=== PATIENT | male | born 1935 | race Caucasian/White ===

== ENCOUNTER 2017-08-23 16:35 | Inpatient (IN) | payer OTHER ==
[~2017-08-23] VITALS: Ht 175.3 cm; Wt 63.0 kg
[2017-08-23] VITALS (7 sets, daily range): BP systolic 78–143; BP diastolic 40–78
[2017-08-23] MEDS ORDERED: TERAZOSIN HCL10 MG PO (16:54)
[2017-08-23] MEDS ORDERED: PHENAZOPYRIDIN200 M2 PO (16:54)
[2017-08-23 17:16] LABS: HEMOGLOBIN 8.5 gm/dL (14.0-18.0); MCH 28.7 pg (26.0-34.0); MCHC 33.9 g/dL (28.0-37.0); MCV 84.6 fL (80.0-100.0); MPV 8.4 fl. (7.2-11.1); NUCLEATED RBCS 0 /100WBC; PLATELET COUNT* 106 thou/uL (150-400); RBC 2.95 mil/uL (4.50-6.00); RDW-CV 14.1 % (10.5-14.5); WBC 11.1 thou/uL (4.0-11.0)
[2017-08-23 17:25] LABS: ANION GAP 9 mmol/L (7-16); BUN 38 mg/dL (7-18); CALCIUM 8.7 mg/dL (8.5-10.1); CHLORIDE 104 mmol/L (98-107); CO2 23 mmol/L (21-32); CREATININE 2.3 mg/dL (0.6-1.3); GLUCOSE 112 mg/dL (70-99); POTASSIUM 4.2 mmol/L (3.5-5.1); SODIUM 136 mmol/L (136-145)
[2017-08-23 17:26] LABS: APTT 30.5 Seconds (25.0-31.3); INR 1.3; PROTIME 12.6 Seconds (9.20-11.50)
--- NOTE | 2017-08-23 17:29 | NUR ---
CT COMPLEATED PT RETURNED TO ED
[2017-08-23 17:32] LABS: ALBUMIN 2.4 g/dL (3.4-5.0); ALKALINE PHOSPHATASE 48 U/L (46-116); SGOT 15 U/L (15-37); SGPT 18 U/L (30-65); TOTAL BILIRUBIN 0.5 mg/dL (<0.1-1.0); TOTAL PROTEIN 5.1 g/dL (6.4-8.2); TROPONIN-I LEVEL <0.06 ng/mL (<0.06)
[2017-08-23 19:01] LABS: ABSOLUTE LYMPHOCYTES 0.1 thou/uL (0.8-5.3); ABSOLUTE MONOCYTES 0.1 thou/uL (0.0-1.2); ABSOLUTE NEUTROPHILS 10.9 thou/uL (1.6-8.1)
[2017-08-23 19:02] LABS: HYPOCHROMASIA Occasional; PLATELET ESTIMATE DECREASED
--- NOTE | 2017-08-23 19:19 | NUR ---
CENTRAL LINE PLACED BY IN R GROIN. STERILE FIELD MAINTAINED. REPORT TO DEBBIE.
[2017-08-23 21:24] LABS: URINE BILIRUBIN NEGATIVE (Negative); URINE BLOOD 3+ (Negative); URINE COLOR BROWN; URINE GLUCOSE-RANDOM NEGATIVE (Negative); URINE KETONES NEGATIVE (Negative); URINE PROTEIN 2+ (Negative); URINE UROBILINOGEN 0.2 E.U./dl (0.2-1.0)
[2017-08-23 21:25] LABS: URINE LEUKOCYTES-REFLEX 3+ (Negative); URINE NITRITE-REFLEX POSITIVE (Negative)
[2017-08-23 21:26] LABS: URINE CLARITY TURBID
[2017-08-23 21:30] LABS: AMORPHOUS PHOSPHATES Moderate /LPF (None Seen); BACTERIA-REFLEX >30 Many /HPF (None Seen); CASTS None Seen /LPF (None Seen); MUCUS 4-6 Moderate strn/LPF (None Seen); RENAL EPITHELIAL CELLS 0-3 Few /LPF (None Seen); SQUAMOUS 0-3 Few /LPF (0-3); URINE RBC >20 Many /HPF (0-2); URINE WBC-REFLEX >25 Many /HPF (0-5); WBC CLUMPS Few (None Seen)
[2017-08-23 21:38] LABS: INFLUENZA A ANTIGEN None Detected (None Detect); INFLUENZA B ANTIGEN None Detected (None Detect)
[2017-08-24] VITALS (31 sets, daily range): BP systolic 75–130; BP diastolic 39–76
[2017-08-24 03:41] LABS: HEMATOCRIT 25.2 % (42.0-52.0); HEMOGLOBIN 8.4 gm/dL (14.0-18.0); MCH 28.1 pg (26.0-34.0); MCHC 33.2 g/dL (28.0-37.0); MCV 84.5 fL (80.0-100.0); MPV 8.6 fl. (7.2-11.1); RBC 2.98 mil/uL (4.50-6.00); RDW-CV 14.2 % (10.5-14.5)
[2017-08-24 04:04] LABS: CALCIUM 8.8 mg/dL (8.5-10.1); CREATININE 2.2 mg/dL (0.6-1.3); MAGNESIUM 1.4 mg/dL (1.8-2.4); POTASSIUM 3.8 mmol/L (3.5-5.1); TROPONIN-I LEVEL 0.32 ng/mL (<0.06)
--- NOTE | 2017-08-24 06:15 | NUR ---
PT ADMITTED TO ICU AT 2015 FOR SEPSIS. PT HAD RIGHT GROIN TRIPLE LUMEN CATHETER PLACED IN RIGHT GROIN IN ED. IV FLUIDS INFUSING, PT RECIEVED 2 LITER SALINE IN ED. MARTEL CATHETER PLACED PER SEPSIS PROTOCOL, UA SENT. TEMP 103.[address] KITCHEN. RECIEVED ORDERS FOR PRN TYLENOL, BLOOD CULTURES AND CONSULT FOR INFECTIOUS DISEASE. PT'S TMAX 104.1. CURRENT TEMP 98.1.
--- NOTE | 2017-08-24 12:20 | EKG ---
[place] [address] ELECTROCARDIOGRAM REPORT Name: DASHURI Anny Room: [address] ADM IN .R.#: [id number] Admission: 08/23/17 Attend Phys: Louie Aguilar, Discharge: Date of : 31 Report #: [id number] THIS REPORT FOR: //name// [facility] ED Test Date: 2017-08-23 Test Time: 16:39:41 Pat Name: URI BOWLING Department: Room: [facility] Gender: M Angio Technologist: MS : 1935 Requested By: Joe Coronel Order Number: [id number] MD: Jimy Garcia Measurements Intervals [place] Rate: 79 P: 57 DC: 152 QRS: 28 QRSD: 97 T: 48 QT: 364 QTc: 418 Interpretive Statements Sinus rhythm Borderline low voltage, extremity leads No previous ECG available for comparison Electronically Signed On 08-24-2017 12:20:47 FIELD TALENT QUALIFICATION SPECIALIST by Jimy Garcia [email or web address] <ELECTRONICALLY SIGNED> By: Jimy Garcia MD, [facility] 08/24/17 1220 1639 1639 Jimy Garcia MD, FACC /EPI
--- NOTE | 2017-08-24 18:47 | NUR ---
PT WENT IN TO AFIB WITH RVR AT APPROXIMATELY 1720. CONSULT FOR CARDIOLOGY CALLED. PT STILL REQUIRING 4 MCG/MIN LEVOPHED. 1 DOSE OF DIGOXIN GIVEN, PLEASE SEE EMAR. PT LEFT FOR SURGERY AT APPROXIMATELY [address] BOND. ASSESSMENT CHARTED. NO COMPLAINTS OF PAIN. UP TO COMMODE X3 TODAY. CATHETER CONTINUES TO DRAIN BLOOD TINGED URINE WITH CLOTS. CATHETER HAS BEEN IRRIGATED EVERY HOUR SINCE UROLOGY HAS BEEN IN TO SEE HER. VSS THROUGHOUT THE DAY ON LEVOPHED PER TITRATION.
--- NOTE | 2017-08-24 19:40 | NUR ---
PT BACK FROM OR AT 1920 AFTER CYSTODCOPY AND STENT PLACEMENT TO URETER. T SOMULANT, O2 SAT 98% ON ROOM AIR. PT CONTINUED ON IV FLUIDS AND LEVOHED AT 4 MCG'S. PT IN SINUS RHYTHM, BLOOD RESSURE 128/58.
--- NOTE | 2017-08-24 22:54 | NUR ---
PT'S HEART RATE IN 140,S. MONITORED RYHTYM AFIB. STARTED CARDIZEM DRIP AT 5 MG/HR.
[2017-08-25] VITALS (26 sets, daily range): BP systolic 90–139; BP diastolic 41–65
[2017-08-25 05:02] LABS: HEMATOCRIT 26.6 % (42.0-52.0); HEMOGLOBIN 8.9 gm/dL (14.0-18.0); MCH 28.1 pg (26.0-34.0); MCHC 33.3 g/dL (28.0-37.0); MCV 84.4 fL (80.0-100.0); RBC 3.15 mil/uL (4.50-6.00); RDW-CV 14.1 % (10.5-14.5); WBC 17.5 thou/uL (4.0-11.0)
[2017-08-25 05:31] LABS: ALBUMIN 1.9 g/dL (3.4-5.0); ALKALINE PHOSPHATASE 41 U/L (46-116); ANION GAP 8 mmol/L (7-16); BUN 31 mg/dL (7-18); CALCIUM 9.1 mg/dL (8.5-10.1); CHLORIDE 114 mmol/L (98-107); CHOLESTEROL 102 mg/dL (<200); CO2 22 mmol/L (21-32); CREATININE 1.6 mg/dL (0.6-1.3); GLUCOSE 110 mg/dL (70-99); MAGNESIUM 1.9 mg/dL (1.8-2.4); POTASSIUM 3.8 mmol/L (3.5-5.1); SGOT 28 U/L (15-37); SGPT 26 U/L (30-65); SODIUM 144 mmol/L (136-145); TOTAL BILIRUBIN 0.4 mg/dL (<0.1-1.0); TOTAL PROTEIN 4.8 g/dL (6.4-8.2); TRIGLYCERIDE 49 mg/dL (<150); VLDL 10 mg/dL (<40)
[2017-08-25 06:07] LABS: TROPONIN-I LEVEL 0.68 ng/mL (<0.06)
[2017-08-25 06:17] LABS: HDL CHOLESTEROL 30 mg/dL (>40); LDL CHOLESTEROL 63 mg/dL (<100); TC:HDL 3.4 Ratio (Not establshd)
[2017-08-25 06:24] LABS: SERUM ASSESSMENT CLEAR
--- NOTE | 2017-08-25 08:07 | CON ---
[address] [address] CONSULTATION Name: URI BOWLING Room: [address] IN .R.#: [id number] Admission: 08/23/17 Attend Phys: Louie Aguilar, Discharge: Date of : 33 Report #: [id number] THIS REPORT FOR: //name// CC: Luis Alfredo Aguilar DATE OF SERVICE: 08/24/2017 INFECTIOUS DISEASE CONSULTATION ATTENDING PHYSICIAN: Dr. Aguilar. REASON FOR CONSULTATION: Septic shock, pyelonephritis. HISTORY OF PRESENT ILLNESS: Chart reviewed, the patient examined. This is an 82-year-old male who had progressive weakness over the course of a few days, had multiple falls and was found to be confused. Evaluation suggested possible infectious etiology, recorded temperature elevation as high as 104.4. Urinalysis did show marked pyuria. Urine and blood cultures are pending. It is notable he has had a recent diagnosis of prostate cancer and has been apparently started on chemotherapy. He describes having something local instillation into his perineal area. In addition, he has had some nausea and poor appetite. No cough. He was empirically started on meropenem dosed with vancomycin. ALLERGIES: None known. MEDICATIONS: As described above, on Zosyn as well, p.r.n. analgesics and antiemetics. PAST MEDICAL HISTORY: History of bladder cancer, renal lithiasis and previous lithotripsies. SOCIAL HISTORY: Nonsmoker, no ethanol. FAMILY HISTORY: Noncontributory. REVIEW OF SYSTEMS: As above. PHYSICAL EXAMINATION: GENERAL: He appears chronically ill, undernourished. He is pleasant, although he is mildly encephalopathic. VITAL SIGNS: Temperature 97.3 and T-max of 104.4, pulse 75, respirations 14 and blood pressure 110/53. SKIN: Warm, dry. No rashes. HEENT: Unremarkable. NECK: [place] [address] CONSULTATION Name: URI BOWLING Room: [address]#: [id number] Admission: 08/23/17 Attend Phys: Louie Aguilar, Discharge: Date of : 33 Report #: [id number] LUNGS: Diminished. He has a few crackles at the bases. HEART: Regular. I do not appreciate a murmur. ABDOMEN: Soft. There are no peritoneal signs. Really not tender. GENITOURINARY: Deferred. RECTAL: Deferred. LABORATORY DATA: Blood cultures sterile thus far. Lactic acid initially 2.9, repeat was 1.6. Electrolytes: Sodium 140, potassium 3.8, chloride 109, bicarbonate is 22, anion gap of 9, BUN and creatinine 34 and 2.2 and estimated GFR of 29. CBC: White count of 12.0, H and H 8.4 and 25.2 and platelets of 93,000. Urinalysis with greater than 25 white cells and greater than 30 bacteria. Influenza antigen was negative. ASSESSMENT AND PLAN: Septic shock with complication of pyelonephritis. I think we can treat with monotherapy. We will back off on antibiotics. Await results. There is no evidence of obstructive uropathy at this point, but noted he had history of renal lithiasis. May need to do imaging if he does not respond fairly quickly. It is not clear whether he has significant immune suppression at this point. <ELECTRONICALLY SIGNED> By: Ceferino Swanson MD 08/25/17 0807 1115 [id number] Swanson MD /nt
--- NOTE | 2017-08-25 10:57 | NUR ---
Nutrition: Pt admitted with sepsis 2/2 UTI. +BM 08/24. H/o bladder cancer. RX: digoxin. Labs: BG 110, alb 1.9, prealb 2.8, WBC 17.5. Wt: 139#. Regular diet. Severely depleted visceral protein stores. Will follow pt's po intake and labs. Hopeful for good po intake and increase in proteins. Will follow per protocol. Mild risk at this time.
--- NOTE | 2017-08-25 10:59 | EKG ---
[place] [address] ELECTROCARDIOGRAM REPORT Name: URI BOWLING Room: [address] ADM IN .R.#: [id number] Admission: 08/23/17 Attend Phys: Louie Aguilar, Discharge: Date of : 33 Report #: [id number] THIS REPORT FOR: //name// [facility] Test Date: 2017-08-24 Test Time: 17:35:41 Pat Name: URI BOWLING Department: Room: [address] Gender: M Fiber Optic Assembly Worker: UNKNOWN : 1935 Requested By: Louie Aguilar Order Number: [id number] Lety MD: Jimy Garcia Measurements Intervals [place] Rate: 124 P: ID: QRS: -20 QRSD: 67 T: 73 QT: 389 QTc: 559 Interpretive Statements Atrial fibrillation Inferior infarct, old Prolonged QT interval Compared to ECG 08/23/2017 16:39:41 Prolonged QT interval now present Sinus rhythm no longer present Electronically Signed On 08-25-2017 10:59:34 FALSEWORK BUILDER by Jimy Garcia [email or web address] <ELECTRONICALLY SIGNED> By: Jimy Garcia MD, [facility] 08/25/17 1059 1735 173 Jimy Garcia MD, [facility] /EPI
--- NOTE | 2017-08-25 11:08 | EKG ---
[place] [address] ELECTROCARDIOGRAM REPORT Name: DASHURI Anny Room: [address] ADM IN M.R.#: [id number] Admission: 08/23/17 Attend Phys: Louie Aguilar, Discharge: Date of : 33 Report #: [id number] THIS REPORT FOR: //name// [facility] Test Date: 2017-08-25 Test Time: 08:45:48 Pat Name: URI BOWLING Department: Room: [address] Gender: M Manager Route: 27 : 1935 Requested By: Jimy Garcia Order Number: [id number] Lety MD: Jimy Garcia Measurements Intervals [place] Rate: 93 P: -64 [place]: 154 QRS: -14 QRSD: 72 T: 220 QT: 412 QTc: 513 Interpretive Statements Sinus or ectopic atrial rhythm Probable inferior infarct, old Lateral leads are also involved Prolonged QT interval Electronically Signed On 08-25-2017 11:08:01 RECEIVER DISPATCHER by Jimy Garcia [email or web address] <ELECTRONICALLY SIGNED> By: Jimy Garcia MD, [facility] 08/25/17 1108 0845 0845 Jimy Garcia MD, FACC /EPI
--- NOTE | 2017-08-25 16:21 | 2DMMODE ---
[place] [address] 2 D/M-MODE ECHOCARDIOGRAM Name: URI BOWLING Room: [address] ADM IN [facility]#: [id number] Admission: 08/23/17 Attend Phys: Louie De Los Santos Discharge: Date of : 33 Date of Service: 08/25/17 1620 Report #: [id number] THIS REPORT FOR: //name// APPROVED REPORT Study performed: 08/25/2017 11:27:34 EXAM: Comprehensive 2D, Doppler, and color-flow Echocardiogram Patient Location: In-Patient Room #: 004 Status: routine BSA: 1.77 HR: 69 bpm BP: 126/51 mmHg Rhythm: NSR Other Information Study Quality: Good Indications Hypotension Acute WV Sepsis 2D Dimensions LVEF(%): 74.07 (>50%) IVSd: 12.04 (7-11mm) LVOT Diam: 22.25 (18-24mm) LVDd: 39.66 mm PWd: 12.77 (7-11mm) Ascending Ao: 37.59 (22-36mm) LVDs: 22.83 (25-40mm) Aortic Root: 37.54 mm Krueger's LVEF: 74.07 % Volumes Left Atrial Volume (Systole) LA ESV Index: 26.90 mL/m2 Aortic Valve AoV Peak Austin.: 1.90 m/s AO Peak Gr.: 14.45 mmHg AO Mean Gr.: 8.41 mmHg AO V2 VTI: 36.52 cm Mitral Valve E/A Ratio: 0.82 [place] [address] 2 D/M-MODE ECHOCARDIOGRAM Name: DASHURI Anny Room: [address] IN [facility]#: [id number] Admission: 08/23/17 Attend Phys: Louie De Los Santos Discharge: Date of : 33 Date of Service: 08/25/17 1620 Report #: [id number] MV Decel. Time: 221.70 ms MV E Max Austin.: 0.89 m/s MV PHT: 64.29 ms MVA (PHT): 3.42 cm2 TDI E/Lateral E': 12.71 E/Medial E': 5.93 Medial E' Austin.: 0.15 m/s Lateral E' Austin.: 0.07 m/s Pulmonary Valve PV Peak Austin.: 1.38 m/s PV Peak Gr.: 7.58 mmHg Tricuspid Valve TR Peak Gr.: 32.16 mmHg RVSP: 37.00 mmHg Left Ventricle The left ventricle is normal size. There is normal LV segmental wall motion. Mild concentric left ventricular hypertrophy. Left ventricular systolic function is normal. The left ventricular ejection fraction is within the normal range. LVEF is 65-70%. The left ventricular diastolic function is normal. Right Ventricle The right ventricle is normal size. The right ventricular systolic function is normal. Atria The left atrium size is normal. The right atrium size is normal. Aortic Valve The aortic valve is normal in structure. No aortic regurgitation is present. There is no aortic valvular stenosis. Mitral Valve The mitral valve is normal in structure. Trace mitral regurgitation.. No evidence of mitral valve stenosis. Tricuspid Valve The tricuspid valve is normal in structure. Trace tricuspid regurgitation. The RVSP is 35-40 mmHg. Pulmonic Valve The pulmonary valve is normal in structure. There is no pulmonic [place] [address] 2 D/M-MODE ECHOCARDIOGRAM Name: URI BOWLING Room: [address] IN .R.#: [id number] Admission: 08/23/17 Attend Phys: Louie De Los Santos Discharge: Date of : 33 Date of Service: 08/25/171619 Report #: [id number] Great Vessels The aortic root is normal in size. IVC is normal in size and collapses with >50% inspiration Pericardium There is no pericardial effusion. <Conclusion> LVEF is 65-70%. Mild concentric left ventricular hypertrophy. <ELECTRONICALLY SIGNED> By: Jimy Garcia MD, FACC 08/25/171619 19 19 Jimy Garcia MD, FACC /INF
--- NOTE | 2017-08-25 19:17 | NUR ---
PT RESTING QUIETLY IN BED. MARTEL CATHETER PATENT, DRAINING DARK RED URINE. PT DENIES PAIN OR DISCOMFORT.
[2017-08-26] VITALS (7 sets, daily range): BP systolic 107–122; BP diastolic 48–57
[2017-08-26 04:52] LABS: ABSOLUTE MONOCYTES 0.7 thou/uL (0.0-1.2); ABSOLUTE NEUTROPHILS 8.7 thou/uL (1.6-8.1); BASOPHILS 0.1 %; EOSINOPHILS 0.2 %; HEMATOCRIT 24.9 % (42.0-52.0); HEMOGLOBIN 8.4 gm/dL (14.0-18.0); LYMPHOCYTES 9.2 %; MCH 28.5 pg (26.0-34.0); MCHC 33.7 g/dL (28.0-37.0); MCV 84.5 fL (80.0-100.0); MONOCYTES 6.8 %; MPV 9.3 fl. (7.2-11.1); NUCLEATED RBCS 0 /100WBC; PLATELET COUNT* 103 thou/uL (150-400); POLYS 83.7 %; RBC 2.95 mil/uL (4.50-6.00); RDW-CV 14.4 % (10.5-14.5); WBC 10.4 thou/uL (4.0-11.0)
[2017-08-26 05:15] LABS: ALBUMIN 1.8 g/dL (3.4-5.0); CALCIUM 9.2 mg/dL (8.5-10.1); CREATININE 1.4 mg/dL (0.6-1.3); TOTAL BILIRUBIN 0.3 mg/dL (<0.1-1.0); TOTAL PROTEIN 4.3 g/dL (6.4-8.2)
[2017-08-26 05:33] LABS: % SATURATION 67 % (20-39); IRON 74 ug/dL (50-175)
--- NOTE | 2017-08-26 10:12 | NUR ---
PATIENT WENT TO ROOM 316 BY WHEELCHAIR WITH NURSING STAFF. ALL BELONGINGS SENT WITH PATIENT . NO COMPLAINTS OF PAIN. ALL QUESTIONS ANSWERED. REPORT GIVEN TO COLETTE FRANCO. ALL QUESTIONS ANSWERED TO HIM
--- NOTE | 2017-08-26 17:17 | CON ---
[address] [address] CONSULTATION Name: URI BOWLING Room: [address] IN .R.#: [id number] Admission: 08/23/17 Attend Phys: Louie Aguilar, Discharge: Date of : 33 Report #: [id number] THIS REPORT FOR: //name// CC: KAREN Aguilar DATE OF SERVICE: 08/24/2017 HISTORY OF PRESENT ILLNESS: The patient is an 82-year-old white male who I was asked to see in the hospital today after he was noted to have an abnormal troponin. The history is obtained from the chart as well as the patient. No family is available. He apparently has a history of prostate cancer and has been receiving chemotherapy. He has had hematuria. Recently, he has felt weak and has a problem with balance. He apparently tripped and fell several times at home. Yesterday, the patient felt weak and fell. He had some nausea and lightheadedness. He was brought to the hospital and admitted for further evaluation and treatment. His troponin was noted to be abnormal and I was asked to see him for further evaluation and treatment. He denies history of myocardial infarction or chest pain. He has had no previous cardiac evaluation. He denies recent shortness of breath, palpitations. When he fell, he denied any seizure activity. He did not lose consciousness. He has had no vomiting or diarrhea. PAST MEDICAL HISTORY: Otherwise significant for cataract extraction. MEDICATIONS: His only home medication includes Hytrin. ALLERGIES: He had no known drug allergies. FAMILY HISTORY: His father had heart disease. 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 No smoking or alcohol abuse. REVIEW OF SYSTEMS: He has had no history of stroke, asthma, peptic ulcer disease, liver disease. He has had a kidney stone. No psychiatric illness. No chronic skin condition. PHYSICAL EXAMINATION: GENERAL: Revealed an elderly, frail appearing white male, lying in bed, appeared in no distress. VITAL SIGNS: He had a blood pressure on admission yesterday of only 80, pulse is 80. He is afebrile. HEENT: He is anicteric. Conjunctivae pink. Mucous membranes moist. NECK: Veins do not appear distended. [place] [address] CONSULTATION Name: URI BOWLING Room: [address]#: [id number] Admission: 08/23/17 Attend Phys: Louie Aguilar, Discharge: Date of : 33 Report #: [id number] CHEST: Clear to auscultation. HEART: Regular rate and rhythm. ABDOMEN: Soft, nontender. EXTREMITIES: Had no pitting edema. Posterior tibial pulse 2+ bilaterally. SKIN: Cool and dry. NEUROLOGIC: Nonfocal. LYMPH: No adenopathy. MUSCULOSKELETAL: No joint effusion. RADIOLOGICAL DATA: His ECG on admission showed a sinus rhythm with no ST or T-wave change. Workup in the Emergency Room yesterday included CT scan of the head without contrast that showed chronic changes, nothing acute. His chest x-ray showed normal heart size and clear lung cardoza. LABORATORY DATA: Sodium 140, BUN 34, creatinine 2.2, glucose 100. His albumin is 2.4. Troponin 0.06, this morning is 0.32. White blood cell count 12.0, hemoglobin 8.4, platelet count 93,000. IMPRESSION AND RECOMMENDATIONS: 1. Recurrent falls. Suspect dehydration. 2. History of prostate cancer. 3. Recent initiation of chemotherapy. 4. Borderline troponin. No ECG changes or history of angina. Doubt myocardial infarction. 5. Anemia. 6. Thrombocytopenia. <ELECTRONICALLY SIGNED> By: Jimy Garcia MD, FACC 08/26/17 1717 1200 0143Dlenka Garcia MD, FACC /nt
--- NOTE | 2017-08-26 20:03 | NUR ---
PATIENT ADMITTED TO ROOM 316 LATE THIS MORNING. A/O X 4, DENIES PAIN, COMPLIANT WITH CARES AND MEDICATION. FAMILY AT BEDSIDE MOST OF THIS SHIFT. PATIENT RELUCTANT TO REQUEST ASSIST WHEN EXITING BED, DID REMOVE IV ACCESS TO RFA, DID DISCONNECT MARTEL CATHETER. NEW 18 G PLACED TO LEFT FA X 1 ATTEMPT, GOYO ABT WITHOUT ANY ADR. CONTINENT OF BOWEL, 960 ML OF SANGUINOUS URINE OUT IN LAST 8 HOURS. CALL LIGHT IN REACH.
[2017-08-27] VITALS: BP 150/66
[2017-08-27 03:54] VITALS: BP 136/58
[2017-08-27 04:03] LABS: HEMATOCRIT 24.4 % (42.0-52.0); HEMOGLOBIN 8.5 gm/dL (14.0-18.0); MCH 28.9 pg (26.0-34.0); MCHC 34.9 g/dL (28.0-37.0); MCV 82.9 fL (80.0-100.0); MPV 9.9 fl. (7.2-11.1); RBC 2.94 mil/uL (4.50-6.00); RDW-CV 14.1 % (10.5-14.5); WBC 8.1 thou/uL (4.0-11.0)
[2017-08-27 04:11] LABS: ALBUMIN 1.9 g/dL (3.4-5.0); CALCIUM 8.4 mg/dL (8.5-10.1); MAGNESIUM 1.6 mg/dL (1.8-2.4); PHOSPHORUS* 2.3 mg/dL (2.5-4.9); POTASSIUM 3.5 mmol/L (3.5-5.1)
[2017-08-27 04:46] LABS: CREATININE 1.3 mg/dL (0.6-1.3)
[2017-08-27 08:00] VITALS: BP 139/61
--- NOTE | 2017-08-27 11:22 | NUR ---
SW met with pt to complete initial assessment, introduce self, and SW role. Pt anticipates to be able to dc home with . Pt said that he may have a RW from a family member. SW explained one could be orderd if needed and SW will continue to follow to assist with safe dc planning.
--- NOTE | 2017-08-27 13:13 | EKG ---
[place] [address] ELECTROCARDIOGRAM REPORT Name: DASHURI Room: [address] ADM IN R.#: [id number] Admission: 08/23/17 Attend Phys: Louie Aguilar, Discharge: Date of : 33 Report #: [id number] THIS REPORT FOR: //name// [facility] Test Date: 2017-08-27 Test Time: 09:58:23 Pat Name: URI BOWLING Department: Room: [facility] Gender: M Emergency Department Aide: 27 : 1935 Requested By: Juanita Milner Order Number: [id number] Lety MD: Jimy Garcia Measurements Intervals [place] Rate: 53 P: 55 NE: 171 QRS: 3 QRSD: 102 T: 24 QT: 452 QTc: 425 Interpretive Statements Sinus bradycardia Borderline low voltage, extremity leads Compared to ECG 08/25/2017 08:45:48 rate slowed Myocardial infarct finding no longer present Prolonged QT interval no longer present Electronically Signed On 08-27-2017 13:13:16 LAWN SPECIALIST by Jimy Garcia [email or web address] <ELECTRONICALLY SIGNED> By: Jimy Garcia MD, [facility] 08/27/17 1313 0958 0958 Jimy Garcia MD, [facility] /EPI
[2017-08-27 14:23] VITALS: BP 139/61
--- NOTE | 2017-08-27 15:01 | CON ---
[address] [address] CONSULTATION Name: URI BOWLING Room: [address] IN .R.#: [id number] Admission: 08/23/17 Attend Phys: Louie Aguilar, Discharge: Date of : 33 Report #: [id number] THIS REPORT FOR: //name// CC: Luis Alfredo Aguilar DATE OF SERVICE: 08/25/2017 REQUESTING PHYSICIAN: Dr. Gama Fang. REASON FOR CONSULTATION: Acute kidney injury. HISTORY OF PRESENT ILLNESS: The patient is a very pleasant 82-year-old gentleman who was admitted to the hospital on 08/23/2017 with complaints of weakness, not feeling well. He was experiencing frequent falls. When he was evaluated in the Emergency Room, he was diagnosed with sepsis, acute kidney injury, had abdominal CT done, which revealed proximal obstructive right ureteropelvic junction calculus with moderate hydronephrosis, a calculus was measuring 6 mm in size, they also noted that he had some adrenal mass, 2.7 x 2 cm mass. So, urology was consulted, Dr. Griffiths took the patient to operating room and placed right RPG and JJ stent. The patient's condition improved, his creatinine came down and this morning gets to 1.6, it was 2.3 on admission. PAST MEDICAL HISTORY: 1. Significant for recurrent renal stones. 2. History of chronic kidney disease stage 3. 3. History of prostate cancer. FAMILY HISTORY: Noncontributory. SOCIAL HISTORY: There is no current tobacco or alcohol abuse. REVIEW OF SYSTEMS: Feels much better now and states that his weakness and dizziness resolved. He was complaining of constipation, but now he is having better bowel movement. His appetite is improved. MEDICATIONS: It is important to note that he started chemotherapy for his prostate cancer recently. PHYSICAL EXAMINATION: GENERAL: He is awake, alert, oriented, no acute distress. VITAL SIGNS: Blood pressure now 131/65, heart rate 98, he is afebrile. HEENT: Pupils are round. NECK: Supple. LUNGS: Clear. CARDIOVASCULAR: [place] [address] CONSULTATION Name: URI BOWLING Room: [address] IN [facility]#: [id number] Admission: 08/23/17 Attend Phys: Louie Aguilar, Discharge: Date of : 33 Report #: [id number] ABDOMEN: Soft. LOWER EXTREMITIES: No edema. LABORATORY DATA: Creatinine is 1.6 down from 2.3. Serum sodium 144, potassium 3.3, hemoglobin is 8.9. His urine culture grew gram-negative rods. Blood cultures negative so far. ASSESSMENT: An 82-year-old gentleman admitted with urosepsis due to obstructive stone in the right ureter. A stent was placed by Dr. Griffiths, he is feeling much better, his creatinine is improving. From my standpoint, he is doing very well. I will sign off, I will need to follow with him in my office in 1 month after discharge due to recurrent renal stone. Thank you very much for asking my opinion on acute kidney injury on the patient. <ELECTRONICALLY SIGNED> By: Alexey Levine MD 08/27/17 1501 1026 [id number] Levine MD /PMT
[2017-08-27 16:25] VITALS: BP 140/55
--- NOTE | 2017-08-27 18:21 | NUR ---
PATIENT RESTING IN BED. PATIENT IS UP STANDBY ASSIST. PATIENT HAS MARTEL CATH IN PLACE WITH RED URINE AND OCCASIONAL SMALL CLOTS. MARTEL CATHETER HAS BEEN FLUSHED SEVERAL TIMES THROUGHOUT DAY. PATIENT HAS POOR APPETITE. PATIENT DENIES ANY PAIN. PATIENT HAS BEEN CONFUSED, OREINTED TO SELF. PATIENT DENIES ANY NEEDS AT THIS TIME. CALL LIGHT WITHIN REACH. BED ALARM ON. WILL CONTINUE TO MONITOR.
[2017-08-27 20:00] VITALS: BP 142/65
[2017-08-28] VITALS: BP 150/69
[2017-08-28 04:18] VITALS: BP 149/63
--- NOTE | 2017-08-28 06:45 | NUR ---
PT SLEPT MOST OF SHIFT. ASSESSMENT DOCUMENTED. MEDS GIVEN PER E-MAR. IV PATENT. CATHETER IRRIGATED. NO REPORTS OF PAIN OR NAUSEA. NO CONERNS AT THIS TIME, WILL CONTINUE TO MONITOR.
[2017-08-28 07:38] VITALS: BP 147/68
--- NOTE | 2017-08-28 12:33 | NUR ---
PT DEMONSTRATES MOD INDEP BED MOB, MOD INDEP TRANSFERS AND GAIT W/ RW. PT AND SPOUSE INDICATE THEY HAVE ACCESS TO RW FOR HOME USE. PT HAS RAMP ENTRY INTO HOME. NO FURTHER ACUTE PT SERVICES ARE INDICATED.
[2017-08-28] MEDS ORDERED: SORINE 80 MG TA80 M1 PO (13:43)
[2017-08-28] MEDS ORDERED: AUGMENTIN 500-1 EACH PO (13:44)
[2017-08-28 14:05] VITALS: BP 139/61
--- NOTE | 2017-08-28 14:06 | NUR ---
SW discussed safe dc planning with pt and pt . Pt confirmed that he has RW available and does not want SW to order a RW. SW discussed HH services and pt and pt preference for [facility]. MILTON called Lita with intake at [facility] and referral accepted. MILTON faxed referral/orders/med list to Lita with [facility] at fax number [phone].
--- NOTE | 2017-08-28 14:25 | NUR ---
PATIENT DISCHARGED TO HOME WITH HOME HEALTH. DISCHARGE PAPERS REVIEWED AND SIGNED. PRESCRIPTIONS AND INFORMATION SHEETS GIVEN. IV REMOVED. MARTEL CARE EDUCATION GIVEN AND LEG BAG AND LARGE DRAINAGE BAG GIVEN. DRE DENIES ANY FURTHER NEEDS. PATIENT TAKEN BY WHEELCAHIR TO EXIT. LEFT WITH .
--- NOTE | 2017-09-10 08:22 | OP ---
[address] [address] OPERATIVE REPORT Name: URI BOWLING Room: [address] IN M.R.#: [id number] Admission: 08/23/17 Attend Phys: Louie Aguilar, Discharge: 08/28/17 Date of : 31 Report #: [id number] THIS REPORT FOR: //name// CC: Luis Alfredo Aguilar DATE OF SERVICE: 08/24/2017 SURGEON: Temo Griffiths MD. PREOPERATIVE DIAGNOSIS: Sepsis with ureteral stone. POSTOPERATIVE DIAGNOSIS: Sepsis with ureteral stone. PROCEDURE: Panendoscopy and cystoscopy, right retrograde pyelogram, right double-J stent placement and evacuation of clots. COMPLICATION: No complication. INDICATIONS: This is an 82-year-old white male with known history of bladder cancer and ureteral stones. He has undergone recent ureteral stone procedure by my partner, Dr. Collins. He had also started BCG treatments earlier this week. He comes in with fever and sepsis. He had a low blood pressure and is currently on Levophed. He also had atrial fibrillation with rapid ventricular rate. The patient has grossly infected urine and he presents now for ureteral stent. He and his were thoroughly informed, although the patient is a very good historian, but his was thoroughly informed regarding risks, indications, complications as well as the daughter. They understand there is increased risk given the patient's critical cardiovascular status at this point. DESCRIPTION OF PROCEDURE: Informed consent was obtained, the patient was sterilely prepped and draped in dorsolithotomy position and given appropriate antibiotics. Cystoscopy was carried out. There was a moderate amount of clot in the bladder. I was able to irrigate that all out. A retrograde pyelogram was then performed showing a stone in the proximal ureter. The sensor wire was then used through the Pollack catheter and then a 6 x 20 Contour stent was placed showing good curl in the kidney and good curl in the bladder. The patient tolerated this well and was taken back to the Intensive Care Unit still in satisfactory condition. Musa catheter was placed. He was irrigated and was clear. <ELECTRONICALLY SIGNED> By: Temo Griffiths MD 09/10/17 0822 2153Bstiven Griffiths MD /nt
== END 2017-08-28 14:25 | disposition home health service (06) | DRG 871 ==
LOC: M.ERS 16:35 → M.TBA-ER 19:10 → M.ICU 19:10 → M.3W 08-26 09:38
PROVIDERS: Emergency Medicine Emergency Medical Services; Internal Medicine; Internal Medicine Cardiovascular Disease; Surgery; ADMIT Family Medicine
PROC: 06HM33Z Insertion of Infusion Device into Right Femoral Vein, Percutaneous Approach (ICD-10-PCS; 2017-08-23)
PROC: BT1D1ZZ Fluoroscopy of Right Kidney, Ureter and Bladder using Low Osmolar Contrast (ICD-10-PCS; principal; 2017-08-24)
PROC: 0TCB8ZZ Extirpation of Matter from Bladder, Via Natural or Artificial Opening Endoscopic (ICD-10-PCS; principal; 2017-08-24)
PROC: 0T768DZ Dilation of Right Ureter with Intraluminal Device, Via Natural or Artificial Opening Endoscopic (ICD-10-PCS; principal; 2017-08-24)
DX: A41.9 Sepsis, unspecified organism (principal); R65.21 Severe sepsis with septic shock; N17.0 Acute kidney failure with tubular necrosis; I21.4 Non-ST elevation (NSTEMI) myocardial infarction; D62 Acute posthemorrhagic anemia; E44.0 Moderate protein-calorie malnutrition; N12 Tubulo-interstitial nephritis, not specified as acute or chronic; N20.1 Calculus of ureter; D64.9 Anemia, unspecified; D69.6 Thrombocytopenia, unspecified; N18.3 Chronic kidney disease, stage 3 (moderate); E27.9 Disorder of adrenal gland, unspecified; N13.9 Obstructive and reflux uropathy, unspecified; I48.91 Unspecified atrial fibrillation; E83.42 Hypomagnesemia; Z68.20 Body mass index [BMI] 20.0-20.9, adult; Z90.49 Acquired absence of other specified parts of digestive tract; Z85.46 Personal history of malignant neoplasm of prostate; Z85.51 Personal history of malignant neoplasm of bladder; Z98.49 Cataract extraction status, unspecified eye; Z82.49 Family history of ischemic heart disease and other diseases of the circulatory system